=== PATIENT | male | born 1965 | race Caucasian/White ===

== ENCOUNTER 2020-08-19 16:23 | Emergency (ER) | payer OTHER ==
[~2020-08-19] VITALS: Ht 172.7 cm; Wt 63.5 kg
[2020-08-19] MEDS ORDERED: COZAAR25 MG PO (16:49)
[2020-08-19] MEDS ORDERED: PAXIL20 MG PO (16:49)
[2020-08-19] MEDS ORDERED: OMEPRAZOLE40 MG PO (16:50)
== END 2020-08-19 19:37 | disposition home or self-care (01) ==
LOC: ER 16:23
DX: S00.33XA Contusion of nose, initial encounter (principal); W18.39XA Other fall on same level, initial encounter; Y93.89 Activity, other specified; Y92.098 Other place in other non-institutional residence as the place of occurrence of the external cause; Y99.8 Other external cause status; R55 Syncope and collapse